=== PATIENT | male | born 1960 | race Hispanic/Latino ===

== ENCOUNTER 2021-05-02 20:10 | Emergency (ER) | payer BC, OTHER ==
[2021-05-02] MEDS ORDERED: Dexamethasone 4 MG TAB ONE (21:11)
== END 2021-05-02 21:14 | disposition home or self-care (01) ==
LOC: MADERS 20:10
DX: T52.8X1A Toxic effect of other organic solvents, accidental (unintentional), initial encounter (principal); L24.2 Irritant contact dermatitis due to solvents; E78.5 Hyperlipidemia, unspecified; I10 Essential (primary) hypertension; F17.210 Nicotine dependence, cigarettes, uncomplicated
CPT/HCPCS: 99282; J8540